=== PATIENT | female | born 1995 | race Caucasian/White ===

== ENCOUNTER 2017-09-14 20:59 | Emergency (ER) | payer OTHER ==
[~2017-09-14] VITALS: Ht 177.8 cm; Wt 59.1 kg
[2017-09-14 21:00] VITALS: TEMP 98.2
[2017-09-14] MEDS ORDERED: DICLEGIS PO (21:05)
[2017-09-14 21:14] LABS: BASO % 0.3 % (0.0-2.0); EOS # 0.3 (0.0-0.7); EOS % 3.7 % (0-4.0); GRAN # 5.7 (1.4-6.5); LYMPH # 2.4 (1.2-3.4); LYMPH % 25.6 % (20.0-51.0); MEAN CELL VOLUME 91 fl (80.0-100.0); MEAN CORPUSCULAR HGB CONC 34 g/dl (33.0-37.0); MEAN PLATELET VOLUME 10.7 fl (7.4-10.4); MONO # 0.7 (0.1-0.6); PLATELET COUNT 228 K/mm3 (130-400); RED BLOOD COUNT 3.73 M/mm3 (4.10-5.30); WHITE BLOOD COUNT 9.2 K/mm3 (4.8-10.8)
[2017-09-14 21:16] LABS: HEMOGLOBIN 11.6 g/dl (12.5-16.0); MEAN CORPUSCULAR HEMOGLOBIN 31 pg (27.0-31.0)
[2017-09-14 21:17] LABS: HEMATOCRIT 33.9 % (37.0-47.0)
[2017-09-14 21:24] LABS: COLLECTION METHOD CLEAN CATCH
[2017-09-14 21:25] LABS: ADJUSTED CALCIUM 9.3 mg/dL (8.4-10.2); ALANINE AMINOTRANSFERASE 23 U/L (9-52); ALBUMIN 3.9 gm/dL (3.5-5.0); ALKALINE PHOSPHATASE 54 U/L (50-136); ANION GAP 9 mmol/L (7-16); BILIRUBIN,TOTAL 0.3 mg/dL (0.0-1.0); BLOOD UREA NITROGEN 12 mg/dL (7-17); CALCIUM 9.2 mg/dL (8.4-10.2); CARBON DIOXIDE 23 mmol/L (22-30); CHLORIDE 106 mmol/L (98-107); CREATININE, serum 0.62 mg/dL (0.52-1.25); GLUCOSE 66 mg/dL (74-106); LIPASE 152 U/L (23-300); POTASSIUM 4.1 mmol/L (3.4-5.0); SODIUM 137 mmol/L (137-145); TOTAL PROTEIN 7.2 gm/dL (6.4-8.2)
[2017-09-14 21:28] LABS: C-REACTIVE PROTEIN < 0.5 mg/dL (0.0-0.9)
[2017-09-14 21:31] LABS: AMORPHOUS CRYSTAL Present /uL; MUCOUS Present /lpf; PH 7 (5-8); SQUAMOUS EPITHELIAL 0-2 /hpf; URINE APPEARANCE Hazy; URINE BACTERIA Rare /hpf; URINE BILIRUBIN Negative (NEGATIVE); URINE BLOOD 2+ (NEGATIVE); URINE COLOR Yellow; URINE GLUCOSE Negative (NEGATIVE); URINE KETONE Negative (NEGATIVE); URINE LEUKOCYTE ESTERASE Trace (NEGATIVE); URINE PROTEIN(semi-quant) Negative (NEGATIVE); URINE UROBILINOGEN Negative (NEGATIVE)
[2017-09-14 22:24] VITALS: BP 95/50; PULSE 80
== END 2017-09-14 22:29 | disposition home or self-care (01) ==
LOC: COL.ER 20:59
PROVIDERS: Family Medicine
DX: O26.892 Other specified pregnancy related conditions, second trimester (principal); R10.2 Pelvic and perineal pain; Z3A.20 20 weeks gestation of pregnancy; Z87.42 Personal history of other diseases of the female genital tract
CPT/HCPCS: J2270; J2550; J7030

== ENCOUNTER 2020-07-21 10:58 | Outpatient (CLI) | payer OTHER ==
[2020-07-21] VITALS (10 sets, daily range): BP systolic 93–107; BP diastolic 52–69; PULSE 71–86; TEMP 98.1
[~2020-07-21] VITALS: Ht 172.7 cm; Wt 65.5 kg
[~2020-07-21 10:58] MED LIST: DICLEGIS PO
[2020-07-21] MEDS ORDERED: PRENATAL (11:18)
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
--- NOTE | 2020-07-21 12:06 | NUR ---
1200 PATIENT RESTS IN BED SITH EYES CLOSED
--- NOTE | 2020-07-21 16:15 | NUR ---
9760 PATIENT STATES PAIN AND CRAMPING HAS GOT BETTER. DENIES NEEDS AT THIS TIME. NO BLEEDING NOTED.ALL DISCHARGE INSTRUCTIONS GIVEN TO PATIENT WITH VERBAL UNDERSTANDING. ENCOURAGED TO DO HEATING PACK FOR BACK DISCOMFORT AND TO CALL FOR ANY PAIN OR BLEEDING. PATIENT VERBAL UNDERSTANDING NOTED.
== END 2020-07-21 16:00 | disposition home or self-care (01) ==
LOC: LDRO 10:58
DX: Z34.93 Encounter for supervision of normal pregnancy, unspecified, third trimester (principal)

== ENCOUNTER 2020-09-27 23:22 | Outpatient (CLI) | payer OTHER ==
[~2020-09-27] VITALS: Ht 172.7 cm; Wt 74.5 kg
[~2020-09-27 23:22] MED LIST changes: +PRENATAL
--- NOTE | 2020-09-27 23:35 | NUR ---
2330- pt. to the unit with by her side. complaining of contractions about every 5 minutes since about 1900 this evening. reports GFM, no LOF or bleeding. 2335- EFM and TOCO on and tracing. Vitals taken, assessment completed, SVE /-3. Discussed plan of care for the evening and what to expect. Patient denies further needs. Call light within reach.
[2020-09-27] MEDS ORDERED: UNISOM25 MG PO (23:51)
[2020-09-28 00:40] VITALS: BP 117/74; PULSE 93; TEMP 98.3
[2020-09-28 01:49] VITALS: BP 128/71; PULSE 79
== END 2020-09-28 02:00 | disposition home or self-care (01) ==
LOC: LDRO 23:22
DX: O62.9 Abnormality of forces of labor, unspecified (principal); Z3A.36 36 weeks gestation of pregnancy

== ENCOUNTER 2020-09-28 13:18 | Outpatient (CLI) | payer OTHER ==
[~2020-09-28] VITALS: Ht 172.7 cm; Wt 74.5 kg
--- NOTE | 2020-09-28 13:15 | NUR ---
Pt arrives on unit ambulatory with spouse for ctx that have increased in frequency and duration. Denies LOF, vaginal bleeding and reports GFM. Changed into clean gown. EFM and toco applied. VSS. SVE per this RN . Admission assessment completed. Dr. Goodrich notified. Pt updated on POC. No questions or concerns at this time.
[~2020-09-28 13:18] MED LIST changes: +UNISOM25 MG PO
[2020-09-28 14:18] VITALS: BP 123/71; PULSE 80; TEMP 98.2
--- NOTE | 2020-09-28 14:21 | NUR ---
SVE unchanged. PT taken off monitor. Discharge instructions given. No questions or concerns.
== END 2020-09-28 14:30 | disposition home or self-care (01) ==
LOC: LDRO 13:18
DX: O62.9 Abnormality of forces of labor, unspecified (principal); Z3A.36 36 weeks gestation of pregnancy